=== PATIENT | male | born 1980 | race Caucasian/White ===

== ENCOUNTER 2021-03-01 08:00 | Outpatient (CLI) | payer OTHER ==
[2021-03-01 14:37] LABS: BASOPHILS # (AUTO) 0.1 10^3/uL (0.0-0.1); BASOPHILS % (AUTO) 1.8 %; EOSINOPHILS # (AUTO) 0.5 10^3/uL (0.0-0.7); EOSINOPHILS % (AUTO) 10.6 %; HCT - HEMATOCRIT 45.1 % (42.0-52.0); HGB - HEMOGLOBIN 14.7 g/dL (14.0-18.0); LYMPHOCYTES # (AUTO) 1.1 10^3/uL (1.5-3.5); LYMPHOCYTES % (AUTO) 25.7 %; MEAN CORPUSCULAR HGB CONC 32.6 g/dL (32.0-36.0); MEAN PLATELET VOLUME 10.8 fL (7.4-11.4); MONOCYTES # (AUTO) 0.5 10^3/uL (0.0-1.0); MONOCYTES % (AUTO) 11.3 %; NEUTROPHILS # (AUTO) 2.2 10^3/uL (1.5-6.6); NEUTROPHILS % (AUTO) 50.4 %; PLT - PLATELET COUNT 237 10^3/uL (130-450); RED CELL DISTRIBUTION WIDTH 12.1 % (12.0-15.0); WHITE BLOOD COUNT 4.4 x10^3/uL (4.8-10.8)
[2021-03-01 15:17] LABS: ALBUMIN 4.7 g/dL (3.2-5.5); ALBUMIN/GLOBULIN RATIO 1.7 (1.0-2.2); BILIRUBIN,TOTAL 1.4 mg/dL (0.2-1.0); CALCIUM 9.4 mg/dL (8.5-10.3); CREATININE 0.9 mg/dL (0.6-1.2); POTASSIUM 4.1 mmol/L (3.5-5.0); TOTAL PROTEIN 7.5 g/dL (6.7-8.2)
[2021-03-01 15:27] LABS: PSA FREE 0.16 ng/mL (0.16-2.81)
[2021-03-01 15:28] LABS: PSA TOTAL 0.531 ng/mL (0.000-2.000); THYROID STIMULATING HORMONE 1.21 uIU/mL (0.34-5.60)
== END 2021-03-01 23:59 | disposition home or self-care (01) ==
LOC: LAB.S 08:00
PROVIDERS: ATTEND Physician Assistant Medical
DX: R49.9 Unspecified voice and resonance disorder (principal); N40.0 Benign prostatic hyperplasia without lower urinary tract symptoms; Z80.42 Family history of malignant neoplasm of prostate
CPT/HCPCS: 36415; 80053; 84153; 84154; 84443; 85025

== ENCOUNTER 2021-04-27 11:54 | Emergency (ER) | payer OTHER ==
[2021-04-27 12:02] VITALS: BP 137/84
--- NOTE | 2021-04-27 12:29 | ED Physician Documentation ---
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 Reports being bitten by a bug 2 days ago. It was very pruritic therefore he scratched it. Shortly after that he noticed that a small pustule had developed. He tried to squeeze the pustule and did squeeze out some small amount of purulent fluid but shortly thereafter he had increased swelling, redness and now pain on the ri ght lower hayward. Reports tetanus is up-to-date. No fevers. No history of diabetes. Denies any previous history of skin abscess or significant cellulitis. Review of Systems Constitutional: reports: Reviewed and negative Ears: reports: Reviewed and negative Nose: reports: Reviewed and negative Throat: reports: Reviewed and negative Cardiac: reports: Reviewed and negative Respiratory: reports: Reviewed and negative GI: reports: Reviewed and negative Skin: reports: Lesions PD PAST MEDICAL HISTORY - Present Medications Home Medications: Ambulatory Orders Medication Instructions Recorded Confirmed Sulfamethox/Trimeth 800/160 1 each PO BID #14 tablet 04/27/21 [Bactrim Ds 800/160] - Allergies Allergies/Adverse Reactions: Allergies Allergy/AdvReac Type Severity Reaction Status Date / Time No Known Drug Allergies Allergy Verified 04/27/21 12:00 PD ED PE NORMAL - General General: Alert and oriented X 3, No acute distress - HEENT HEENT: PERRL - Cardiac Cardiac: RRR, No murmur - Respiratory Respiratory: Clear bilaterally - Abdomen Abdomen: Normal bowel sounds, Soft, Non tender, Non distended - Derm Derm: Normal color, Warm and dry, Other (Approximate 5 x 7cm area of erythema induration on the right lower anterior hayward. No fluctuance palpated. No drainage expressed.) Results - Vitals Vitals: Vital Signs - 24 hr 04/27/21 12:00 Temperature 36.5 C Heart Rate 83 Respiratory 16 Rate Blood Pressure 137/84 H O2 Saturation 99 Oxygen O2 Source Room air PD MEDICAL DECISION MAKING - ED course Complexity details: considered differential, d/w patient ED course: Well-appearing 40-year-old male presents emergency department for evaluation of suspected skin infection on the right lower leg that developed after he got a bug bite and scratched it. Shortly thereafter he had a pustule which he popped but following this he developed increased swelling induration and erythema. At this time it does appear to be an early cellulitis without abscess formation. Patient will be started on Bactrim. Recommend Warm compress 3 times daily. Worrisome and emergent return precautions were discussed. Departure - Departure Disposition: Home, Self Care Clinical Impression: Cellulitis of right leg Condition: Stable Record reviewed to determine appropriate education?: Yes Instructions: ED Staph Infec Abx Tx Only Follow-Up: VERNA RIVERA PA-C [Primary Care Provider] - Prescriptions: Sulfamethox/Trimeth 800/160 [Bactrim Ds 800/160] 1 each PO BID #14 tablet Comments: Gianni It does look like you have developed an early bacterial skin infection on your right lower leg After you scratched the bug bite. I do recommend that you place a warm compress on this for 10 minutes 3 times a day. Please fill the prescription for the antibiotic at the [facility] in [place]. Take twice daily for the next week. With the antibiotics I would expect reduced swelling redness and pain over the next 48 hours. If your symptoms are not improving or getting worse before then, then please return immediately to the ER for a second evaluation
== END 2021-04-27 12:31 | disposition home or self-care (01) ==
LOC: ED 11:54
DX: L03.115 Cellulitis of right lower limb (principal)
CPT/HCPCS: 99282; 99283

== ENCOUNTER 2021-05-01 08:42 | Emergency (ER) | payer OTHER ==
[2021-05-01] MEDS ORDERED: LIDOCAINE 1% 2 ML VIAL SUBQ STA ×3 (09:23→10:15)
--- NOTE | 2021-05-01 09:30 | ED Physician Documentation ---
History of Present Illness - Stated complaint Stated Complaint: R LEG PX - Chief complaint Chief Complaint: Ext Problem - History obtained from History obtained from: Patient - History of Present Illness Timing: How many days ago (5) - Additonal information Additional information: This is a 40-year-old man who presents with complaints that he has a "infection" in his right leg. It started 5 days ago with an itchy "bite" on the right hayward. By that evening it had grown significantly it was red and swollen he came in here 4 days ago was prescribed Bactrim which she started taking but within 24 hours it was significantly worse so he went to the walk-in clinic at [place]. There they added Keflex to his antibiotic regimen. That night he actually expressed some pus from the wound. It continued to worsen so he was seen at the walk-in clinic in [place] yesterday where they stopped the Bactrim and put him on doxycycline. Has had no further drainage. He feels little nauseous but no vomiting. His temp was 99.93 days ago and has been experiencing chills and malaise.Denies history of diabetes PD PAST MEDICAL HISTORY - Present Medications Home Medications: Ambulatory Orders Medication Instructions Recorded Confirmed Sulfamethox/Trimeth 800/160 1 each PO BID #14 tablet 04/27/21 [Bactrim Ds 800/160] - Allergies Allergies/Adverse Reactions: Allergies Allergy/AdvReac Type Severity Reaction Status Date / Time No Known Drug Allergies Allergy Verified 05/01/21 08:58 PD ED PE NORMAL - Vitals Vital signs reviewed: Yes - General General: Alert and oriented X 3 - HEENT HEENT: Atraumatic - Respiratory Respiratory: No respiratory distress - Derm Derm: Other (Red, swollen area to R lat lower leg outlined with marker and within border. Central scab with surrounding inudration and fluctuance.) - Extremities Extremities: Other (Swollen, tender lymph node in R groin. No popliteal pain.) - Psych Psych: Normal mood Results - Vitals Vitals: Vital Signs - 24 hr 05/01/21 05/01/21 08:52 11:04 Temperature 37.9 C Heart Rate 83 78 Respiratory 14 18 Rate Blood Pressure 138/85 H 134/98 H O2 Saturation 99 100 Oxygen O2 Source Room air - Labs Labs: Laboratory Tests 05/01/21 11:14 POC Whole Bld Glucose 72 Procedures - Abscess I&D (location) 1115 Preparation: Chlorhexadine, Lidocaine 1% Incision: Incised with scalpel, Purulent drainage, Loculations broken, Irrigated, Packed, Culture obtained Other: Pt tolerated well, Dressing applied PD MEDICAL DECISION MAKING - ED course Complexity details: d/w patient ED course: Abscess drained. Patient to stop Keflex and start continue the doxycycline. Packing removal and wound recheck in 2 days. Ibuprofen [id number]. Wound care discussed and patient's questions were answered.Discharged in good condition. Departure - Departure Disposition: 01 Home, Self Care Clinical Impression: Abscess, Cellulitis of right leg Condition: Good Instructions: Cellulitis Dc, ED Abscess IandD Follow-Up: [facility] [Provider Group] Comments: You may shower and wash the wound. Keep the wound covered to collect any drainage. Stop the Keflex but continue the doxycycline. Take ibuprofen 3 to 4 tablets with food every 8 hours for the next 48 hours. Packing should be removed in 2 days. Follow-up with the [facility] for packing removal and wound recheck.
[2021-05-01 11:05] VITALS: BP 134/98
== END 2021-05-01 11:23 | disposition home or self-care (01) ==
LOC: ED 08:42
DX: L03.115 Cellulitis of right lower limb (principal); L02.415 Cutaneous abscess of right lower limb
CPT/HCPCS: 10060; 87070; 87181; 87205